=== PATIENT | female | born 1990 | race Caucasian/White ===

== ENCOUNTER 2016-12-09 13:59 | Emergency (ER) | payer SELFPAY ==
[2016-12-09 14:00] VITALS: BP 156/97
--- NOTE | 2016-12-09 14:57 | ED.ADGEN ---
Past History Past Medical History: No Pertinent History Past Surgical History: Alcohol Use: None Drug Use: None Adult General Chief Complaint Chief Complaint Impacted dental teeth, dental erosions HPI HPI Patient is a 6-year-old female presents with chronic pains related to impacted and rotated his symptoms. Patient reports increased pain over the past 2 weeks. She is currently scheduled to follow-up with the [employer] [facility] in 10 days, but states her pain is pearly controlled. Denies trismus, hoarseness, dysphonia and dysphagia. No other symptoms or complaints. Review of Systems Review of Systems Review symptoms as per history of present illness. All other review of symptoms and negative. Physical Exam Physical Exam Constitutional: Well developed, well nourished, no acute distress, non-toxic appearance. [] HENT: Normocephalic, atraumatic, bilateral external ears normal, oropharynx moist, persistent impact some tooth with erosions, minimal jaw swelling. No appreciated erythema or soft tissue, cellulitis or abscess. Current Patient Data Vital Signs Vital Signs Date Time Temp Pulse Resp B/P (MAP) Pulse Ox O2 Delivery O2 Flow Rate FiO2 12/09/16 14:00 99.0 86 16 96 Room Air EKG EKG [] Radiology/Procedures Radiology/Procedures [] Course & Med Decision Making Course & Med Decision Making Pertinent Labs and Imaging studies reviewed. (See chart for details) [Impacted and rotated was some tooth. Antibiotics and pain medications prescribed. Patient with established dental follow-up. Final Impression Final Impression [] Problems: Dragon Disclaimer Dragon Disclaimer This electronic medical record was generated, in whole or in part, using a voice recognition dictation system. FABI PATRICK DO Dec 09, 2016 14:57
== END 2016-12-09 15:04 | disposition home or self-care (01) ==
LOC: ER 13:59
DX: G89.29 Other chronic pain (principal); K08.89 Other specified disorders of teeth and supporting structures
CPT/HCPCS: 99283